=== PATIENT | female | born 1965 | race Caucasian/White ===

== ENCOUNTER 2023-03-28 11:20 | Outpatient (OUT) | payer OTHER, SELFPAY | END 2023-03-28 11:21 | disposition home or self-care (01) | LOC: PST 11:20 | PROVIDERS: PCP Internal Medicine; Visit Provider Ophthalmology | DX: Z01.818 Encounter for other preprocedural examination (principal); H25.12 Age-related nuclear cataract, left eye ==

== ENCOUNTER 2023-04-04 07:12 | Day surgery (SDC) | payer OTHER, SELFPAY ==
--- NOTE | 2023-04-04 | OP_ITS ---
OPERATION DATE: ??04/04/2023 SURGEON:? Mann Burrell M.D. PREOPERATIVE DIAGNOSIS:? Nuclear sclerotic cataract left eye. POSTOPERATIVE DIAGNOSIS:? Nuclear sclerotic cataract left eye. PROCEDURE:? Cataract extraction with intraocular lens placement for the left eye. ANESTHESIA:? Topical ESTIMATED BLOOD LOSS:? Zero. COMPLICATIONS:? None. PROCEDURE:? The patient was brought to the Operating Room in supine position.? After proper identification, the left eye was prepped and draped in a sterile ophthalmic fashion.? A paracentesis created at the 5 o'clock position.? Approximately 1 cc of unpreserved Xylocaine was injected into the anterior chamber followed by Amvisc Plus.? Using a 2.4 mm Keratome blade, a clear corneal incision was created at the 3 o'clock limbus.? A cystotome was then used to begin a curvilinear capsulorrhexis that was continued for 360 degrees with the Utrata forceps.? BSS on a 26 gauge cannula was injected beneath the anterior capsule to hydrodissect as well as hydrodelineate the lens.? After ensuring mobility, phacoemulsification was performed in a [id number]-type fashion.? After all nuclear material had been removed from the eye, IA was introduced and all residual cortical material was cleaned up.? Additional Amvisc Plus was injected into the posterior bag and a lens model MX60, 21.0 diopters was injected and dialed into position.? After ensuring centration, IA was reintroduced into the anterior chamber and all residual Amvisc Plus was removed from the eye.? BSS on a 30 gauge cannula was injected into the stroma of both the clear corneal incision as well as paracentesis to hydrate the wounds.? Additional BSS was injected into the anterior chamber to pressurize the eye at approximately 20 to 22 mmHg by finger tension.? 0.1 cc of antibiotic was injected into the anterior chamber.? Weck-Rachell sponges were used to check the wounds to be watertight.? One drop of apraclonidine and one drop of prednisolone acetate placed into the eye and a shield was placed over top. The patient was sent to the postoperative area in satisfactory condition to follow up the following day for postoperative care. ERYN
--- NOTE | 2023-04-04 07:12 | HP_ITS ---
PREOPERATIVE HISTORY AND PHYSICAL ? Date:? 04/03/2023 ? HISTORY:? The patient is a 57-year-old white female with complaints of diminished mature vision in the left eye.? The onset of this has been rather rapid, over the last year.? Both distance as well as near vision has been effected.? Additionally, most significantly has been the night driving that has become more difficult, because of headlights creating glare and halos.? ? PAST OCULAR HISTORY:? Denies. ? PAST MEDICAL HISTORY:? 1.? Breast cancer. 2.? Hypercholesterolemia. 3.? Type 2 diabetes mellitus. ? SOCIAL HISTORY:? Denies tobacco.? Drinks occasionally.? Denies recreational drug abuse.? ? SYSTEMIC MEDICATIONS:? Include atorvastatin, metformin, glipizide, aspirin, omeprazole, omega-3 fish oil, alogliptin pioglitazone.? ? ALLERGIES:? Denies. ? REVIEW OF SYSTEMS:? No pertinent positives. ? PHYSICAL EXAM:? GENERAL:? She is awake, alert and oriented x3, well developed, well nourished, in no acute distress.? ? HEART:? Regular rate and rhythm. ? LUNGS:? Clear bilaterally. ? ABDOMEN:? Soft, non-tender, non-distended. ? EXTREMITIES:? No pitting edema. ? OPHTHALMIC EXAM:? Revealed a visual acuity of 20/40 -1 that glared to 20/400 in the right eye and 20/80 -1 that glared to 20/400 in the left eye.? Pupils motility, muscle balance, confrontational visual jamil within normal limits bilaterally.? Pressures were measured at 16 bilaterally.? Slit lamp exam revealed blepharitis with a severe decrease in tear film bilaterally.? Conjunctiva, cornea, anterior chamber and iris were within normal limits bilaterally.? Lens status demonstrated a 1+ nuclear sclerosis with 3+ posterior subcapsular cataract bilaterally.? ? FUNDUS EXAM:? Revealed a hazy view but discs, macula, vessels, periphery and vitreous were within normal limits bilaterally. ? ASSESSMENT AND PLAN:? Visually significant cataract, left eye.? After risks, benefits, alternatives, as well as expectations were delivered to the patient, she elected to go forward with cataract removal.? She understands the risks include but not limited to infection, bleeding, loss of vision, loss of the eye itself.? Secondly, she understands postoperatively she is likely to require spectacle correction for best visual acuity.? Finally, a complete ophthalmic exam was performed, there is not determined to be any other source of visual decline other than that of the cataract.? ? After understanding all the risks as well as expectations, she elected to go forward with procedure as listed above and will be doing so in the near future. ? ERYN
[2023-04-04 07:20] VITALS: BP 117/77; PULSE 68; RESP 16; TEMP 36.3; O2SAT 97
[2023-04-04] MEDS: TROPICAMIDE 1% OP SOL 300 DROP/15 ML BOTTLE OP ×4 (07:27→07:55)
[2023-04-04] MEDS: CYCLOPENTOLATE HCL 1% OP SOL 40 DROP/2 ML BOTTLE OP ×4 (07:27→07:54)
[2023-04-04] MEDS: BESIFLOXACIN HCL 100 DROP DROPS.SUSP OP ×4 (07:29→07:54)
[2023-04-04] MEDS: PHENYLEPHRINE HCL 2.5% OP SOL 40 DROP/2 ML BOTTLE OP ×4 (07:33→07:54)
[2023-04-04] MEDS: DIAZEPAM 5 MG TABLET PO (07:34)
[2023-04-04] MEDS: LIDOCAINE 2% JELLY 10 ML UR (08:40)
[2023-04-04] MEDS: PROPARACAINE HCL 0.5% 300 DROP/15 ML BOTTLE EYE-LEFT (08:40)
[2023-04-04] MEDS: BETADINE POVIDONE-IODINE 5% OP SOL 30 ML BOTTLE OP (08:40)
[2023-04-04] MEDS: TETRACAINE HCL 0.5% OP SOL 80 DROP/4 ML BOTTLE OP (08:49)
[2023-04-04] MEDS: HYALURONATE SODIUM 16 MG/ML SYRINGE EYE-LEFT (08:49)
[2023-04-04] MEDS: LIDOCAINE HCL 1% PF 20 MG/2 ML VIAL 1 ML INJ (08:49)
[2023-04-04] MEDS: PHENYLEPHRINE/KETOROLAC 1-0.3% ML VIAL 4 ML IRR (08:50)
[2023-04-04 08:55] VITALS: BP 109/40; PULSE 64; RESP 16; O2SAT 100
[2023-04-04] MEDS: CEFUROXIME SODIUM 750 MG, 0.9 % SODIUM CHLORIDE 16.3 ML OP (09:01)
[2023-04-04 09:02] VITALS: BP 109/61; PULSE 65; RESP 16; O2SAT 100
[2023-04-04] MEDS: PREDNISOLONE ACETATE OP 1% SUSP 100 DROPS/5 ML 1 DROP OP (09:03)
[2023-04-04] MEDS: APRACLONIDINE HCL 100 DROP/5 ML BOTTLE OP (09:03)
== END 2023-04-04 09:20 | disposition home or self-care (01) ==
PROVIDERS: PCP Internal Medicine; Visit Provider Ophthalmology
PROC: (CPT 66984; principal; 2023-04-04 08:30)
DX: H25.12 Age-related nuclear cataract, left eye (principal); E11.9 Type 2 diabetes mellitus without complications; E78.00 Pure hypercholesterolemia, unspecified; Z85.3 Personal history of malignant neoplasm of breast; Z79.899 Other long term (current) drug therapy; Z79.84 Long term (current) use of oral hypoglycemic drugs; Z79.82 Long term (current) use of aspirin
CPT/HCPCS: 66984; V2630

== ENCOUNTER 2023-04-22 10:44 | Outpatient (OUT) | payer OTHER, SELFPAY | END 2023-04-22 10:45 | disposition home or self-care (01) | PROVIDERS: PCP Internal Medicine; Visit Provider Ophthalmology | DX: Z01.818 Encounter for other preprocedural examination (principal); H25.811 Combined forms of age-related cataract, right eye ==

== ENCOUNTER 2023-04-25 07:17 | Day surgery (SDC) | payer OTHER, SELFPAY ==
--- NOTE | 2023-04-24 | HP_ITS ---
PREOPERATIVE HISTORY AND PHYSICAL Date:? 04/24/2023 HISTORY:? The patient is a 57-year-old white female who complains of gradual decline in her visual acuity of the right eye.? This onset has been noted over the last year.? She is having more difficulty driving and seeing road signs at a distance.? She also states the night time headlights create glare and halos.? Finally, she states having difficulty reading.? PAST OCULAR HISTORY / PAST MEDICAL HISTORY / SOCIAL HISTORY / MEDICATIONS / ALLERGIES TO MEDICATIONS / REVIEW OF SYSTEMS / PHYSICAL EXAM:? Unchanged from previously dictated. ASSESSMENT / PLAN: Visually significant cataract right eye.? After risks, benefits, alternatives, as well as expectations were delivered to the patient, she elected to go forward with cataract removal.? She understands the risks include but not limited to infection, bleeding, loss of vision, loss of the eye itself.? Secondly, she understands that postoperatively she is likely to require spectacle correction for her best visual acuity.? Finally, a complete ophthalmic exam was performed and there is not determined to be any other source of visual decline other than that of the cataract. After understanding all the risks as well as expectations, she elected to go forward with the procedure as listed above and will be doing so in the near future. ERYN
--- NOTE | 2023-04-25 | OP_ITS ---
OPERATION DATE: ??04/25/2023 SURGEON:? Mann Burrell M.D. PREOPERATIVE DIAGNOSIS:? Nuclear sclerotic cataract right eye. POSTOPERATIVE DIAGNOSIS:? Nuclear sclerotic cataract right eye. PROCEDURE NAME: ?Cataract extraction with intraocular lens placement for the right eye. ANESTHESIA:? Topical. ESTIMATED BLOOD LOSS:? Zero. COMPLICATIONS:? None. PROCEDURE:? The patient was brought to the operating room in supine position.? After proper identification, the right eye was prepped and draped in a sterile ophthalmic fashion.? A paracentesis was created at the 11 o'clock position.? Approximately 1 mL of unpreserved Xylocaine was injected into the anterior chamber followed by Amvisc Plus.? Using a 2.6 mm Keratome blade, a clear corneal incision was created at the 9 o'clock limbus.? A cystotome was then used to begin a curvilinear capsulorrhexis that was continued for 360 degrees with the Utrata forceps.? BSS on a 26 gauge cannula was injected beneath the anterior capsule to hydrodissect as well as hydrodelineate the lens.? After ensuring mobility, phacoemulsification was performed in a [id number]-type fashion.? After all nuclear material had been removed from the eye, IA was introduced and all residual cortical material was cleaned up.? Additional Amvisc Plus was injected into the posterior bag and a lens model MX60, 21.0 diopters was then injected and dialed into position.? After ensuring centration, IA was reintroduced into the anterior chamber and all residual Amvisc Plus was removed from the eye.?? BSS on a 30 gauge cannula was injected into the stroma of both the clear corneal incision as well as the paracentesis to hydrate the wounds.? Additional BSS was injected into the anterior chamber to pressurize the eye at approximately 20 to 22 mmHg by finger tension.? 0.1 mL of antibiotic was injected into the anterior chamber.? Weck-Rachell sponges were used to check the wounds to be watertight.? One drop of Apraclonidine and one drop of prednisolone acetate were placed into the eye and a shield was placed over top. The patient was then sent to the postoperative area in satisfactory condition to follow up the following day for postoperative care. ERYN
[2023-04-25] MEDS: DIAZEPAM 5 MG TABLET PO (07:26)
[2023-04-25] MEDS: BESIFLOXACIN HCL 100 DROP DROPS.SUSP OP ×4 (07:28→07:56)
[2023-04-25] MEDS: CYCLOPENTOLATE HCL 1% OP SOL 40 DROP/2 ML BOTTLE OP ×4 (07:28→07:55)
[2023-04-25] MEDS: PHENYLEPHRINE HCL 2.5% OP SOL 40 DROP/2 ML BOTTLE OP ×4 (07:29→07:55)
[2023-04-25] MEDS: TROPICAMIDE 1% OP SOL 300 DROP/15 ML BOTTLE OP ×4 (07:29→07:55)
[2023-04-25 07:30] VITALS: PULSE 70; RESP 18; TEMP 36.1; O2SAT 100
[2023-04-25 08:40] VITALS: BP 130/81; PULSE 65; RESP 18; O2SAT 100
[2023-04-25] MEDS: HYALURONATE SODIUM 16 MG/ML SYRINGE EYE-RIGHT (08:40)
[2023-04-25] MEDS: PHENYLEPHRINE/KETOROLAC 1-0.3% ML VIAL 4 ML IRR (08:40)
[2023-04-25] MEDS: PROPARACAINE HCL 0.5% 300 DROP/15 ML BOTTLE OP (08:40)
[2023-04-25] MEDS: BETADINE POVIDONE-IODINE 5% OP SOL 30 ML BOTTLE OP (08:40)
[2023-04-25] MEDS: LIDOCAINE 2% JELLY 10 ML UR (08:40)
[2023-04-25] MEDS: APRACLONIDINE HCL 100 DROP/5 ML BOTTLE OP (08:43)
[2023-04-25] MEDS: LIDOCAINE HCL 1% PF 20 MG/2 ML VIAL 1 ML INJ (08:43)
[2023-04-25] MEDS: PREDNISOLONE ACETATE OP 1% SUSP 100 DROPS/5 ML 1 DROP OP (08:44)
[2023-04-25] MEDS: CEFUROXIME SODIUM 750 MG, 0.9 % SODIUM CHLORIDE 16.3 ML OP (08:44)
[2023-04-25] MEDS: TETRACAINE HCL 0.5% OP SOL 80 DROP/4 ML BOTTLE OP (08:44)
[2023-04-25 08:53] VITALS: BP 131/88; PULSE 78; RESP 18; O2SAT 98
== END 2023-04-25 09:05 | disposition home or self-care (01) ==
LOC: SURGOUT 07:17
PROVIDERS: PCP Internal Medicine; Visit Provider Ophthalmology
PROC: (CPT 66984; principal; 2023-04-25 08:30)
DX: H25.811 Combined forms of age-related cataract, right eye (principal)
CPT/HCPCS: 66984; V2630